=== PATIENT | female | born 1975 | race Caucasian/White ===

== ENCOUNTER → 2016-08-10 | Outpatient (CLI) | payer OTHER ==
[~2016-08-10] MED LIST: HYDR-3714 PO; NAPR550T PO; bcp PO
--- NOTE | 2016-08-14 18:14 | Diagnostic Imaging Report ---
Bilateral screening mammogram. The current study was also evaluated with a Computer Aided Detection (CAD) system. INDICATION: Screening. No current complaints stated on the questionnaire. COMPARISON: 08/05/2015. FINDINGS: The breasts are composed of extremely dense parenchyma which would decrease mammographic sensitivity. There are scattered benign-appearing calcifications. There is a biopsy clip in the outer aspect of the right breast. Allowing for technique and positional differences, no suspicious change is seen. IMPRESSION: Dense breasts with no definite change. ACR BI-RADS Category 2: Benign findings. Result letter will be mailed to the patient. Note: At least 10% of breast cancer is not imaged by mammography. Dictated by: Dictated on workstation # [id number]
== END ==
LOC: RAD 08:50
PROVIDERS: ATTEND Obstetrics & Gynecology
DX: Z12.31 Encounter for screening mammogram for malignant neoplasm of breast (principal)
CPT/HCPCS: 77067

== ENCOUNTER → 2017-08-13 | Outpatient (CLI) | payer OTHER ==
--- NOTE | 2017-08-14 07:45 | Diagnostic Imaging Report ---
Digital mammogram. Bilateral screening with 3-D tomosynthesis. This study was compared to prior exams of 08/10/2016, 08/05/2015 and 06/22/2014. At this time there are no current complaints. The current study was also evaluated with a Computer Aided Detection (CAD) system. The fibroglandular tissue of both breasts is dense. This does limit the sensitivity of this exam. On the MLO view of the right breast deep in the breast near the chest wall there is a small 5 mm asymmetric density. This finding is difficult to appreciate on the craniocaudad view and may merely be secondary to superimposition. Even so, would recommend a compression view of this area be obtained in the MLO projection as well as a true lateral view. If this density persists, ultrasound may be necessary as well. The left breast is unchanged. The stereotactic clip in the right breast seen previously is again evident and no different. Impression: Additional mammographic views of the right breast would be recommended for further study. Ultrasound may also be necessary. ACR BI-RADS Category 0: Incomplete. (Needs additional imaging evaluation). Result letter will be mailed to the patient. Note: At least 10% of breast cancer is not imaged by mammography. Dictated by: Dictated on workstation # [id number]
== END ==
LOC: RAD 08:43
PROVIDERS: ATTEND Obstetrics & Gynecology
DX: Z12.31 Encounter for screening mammogram for malignant neoplasm of breast (principal)
CPT/HCPCS: 77067

== ENCOUNTER → 2017-08-23 | Outpatient (CLI) | payer OTHER ==
--- NOTE | 2017-08-23 19:22 | Diagnostic Imaging Report ---
INDICATION: Right breast density. The patient presented for additional views. COMPARISON: Recent screening study from 08/13/2017. EXAMINATION: 2D and 3D unilateral right diagnostic mammography was performed including exaggerated CC, conventional 90 degree lateral and spot compression MLO views. FINDINGS: Additional views fail to demonstrate a discrete mass. The area of density in the far posterior right breast on MLO view appears to resolve with additional views and may represent superimposed fibroglandular tissue. No suspicious calcifications are seen. IMPRESSION: Additional views fail to demonstrate a discrete mass. The patient may return to routine annual screening mammography. ACR BI-RADS Category 1: Negative. Result letter will be mailed to the patient. Note: At least 10% of breast cancer is not imaged by mammography. Dictated by: Dictated on workstation # [id number]
== END ==
LOC: RAD 07:57
PROVIDERS: ATTEND Obstetrics & Gynecology
DX: R92.2 Inconclusive mammogram (principal)

== ENCOUNTER → 2018-09-16 | Outpatient (CLI) | payer OTHER ==
--- NOTE | 2018-09-17 12:13 | Diagnostic Imaging Report ---
EXAMINATION: Digital mammogram bilateral screening with 3D tomosynthesis and CAD. INDICATION: Screening. COMPARISON: This study is compared to the prior exams of 08/13/2017, 08/10/2016, and 08/05/2015. PERSONAL HISTORY: At this time, there are no current complaints. FINDINGS: The fibroglandular tissue in both breasts is dense. This does limit the sensitivity of this exam. Overall, there does not appear to have been any significant change when compared to the prior study. No primary or secondary sign of malignancy is noted. The stereotactic clip in the right breast seen previously is again evident and no different. IMPRESSION: There is no radiographic evidence for malignancy. ACR BI-RADS Category 1: Negative. Result letter will be mailed to the patient. Note: At least 10% of breast cancer is not imaged by mammography. Dictated by: Dictated on workstation # [id number]
== END ==
LOC: RAD 08:09
PROVIDERS: ATTEND Obstetrics & Gynecology
DX: Z12.31 Encounter for screening mammogram for malignant neoplasm of breast (principal); Z98.890 Other specified postprocedural states
CPT/HCPCS: 77067

== ENCOUNTER → 2019-09-19 | Outpatient (CLI) | payer OTHER ==
--- NOTE | 2019-09-19 09:34 | Diagnostic Imaging Report ---
INDICATION: Routine screening. Comparison is made with prior mammogram 09/16/2018 and 08/13/2017. 2-D and 3-D bilateral screening mammography was performed with CAD. Both breasts are heterogeneously dense, limiting the sensitivity of mammography. The parenchymal pattern is stable. No mass or malignant appearing microcalcifications are seen. Axillae are unremarkable. Biopsy clip lateral right breast is again noted. IMPRESSION: BI-RADS Category 2 No mammographic features suspicious for malignancy are identified. ACR BI-RADS Category 2: Benign findings. Result letter will be mailed to the patient. Note: At least 10% of breast cancer is not imaged by mammography. Dictated by: Dictated on workstation # [id number]
== END ==
LOC: RAD 07:34
PROVIDERS: ATTEND Obstetrics & Gynecology
DX: Z12.31 Encounter for screening mammogram for malignant neoplasm of breast (principal)
CPT/HCPCS: 77063; 77067

== ENCOUNTER → 2022-02-23 | Outpatient (CLI) | payer OTHER ==
--- NOTE | 2022-02-24 12:22 | Diagnostic Imaging Report ---
INDICATION: Routine screening. Comparison is made with prior mammogram 09/19/2019 and 09/16/2018. 2-D and 3-D bilateral screening mammography was performed with CAD. CAD is utilized. The current study was also evaluated with a Computer Aided Detection (CAD) system. Both breasts are heterogeneously dense, limiting the sensitivity of mammography. No mass or malignant-appearing microcalcifications are seen. Axillae are unremarkable. There is a biopsy marker clip in the right breast. IMPRESSION: BI-RADS Category 1 No mammographic features suspicious for malignancy are identified. ACR BI-RADS Category 1: Negative. Result letter will be mailed to the patient. Note: At least 10% of breast cancer is not imaged by mammography. Dictated by: Dictated on workstation # [id number]
== END ==
LOC: RAD 15:15
PROVIDERS: ATTEND Nurse Practitioner Women's Health
DX: Z12.31 Encounter for screening mammogram for malignant neoplasm of breast (principal)
CPT/HCPCS: 77063; 77067